=== PATIENT | female | born 1975 | race Caucasian/White ===

== ENCOUNTER 2016-09-13 17:36 | Emergency (ER) | payer MEDICAID ==
--- NOTE | 2016-09-13 19:08 | ER Document Report ---
ED Extremity Problem, Lower - General Mode of Arrival: Ambulatory Information source: Patient TRAVEL OUTSIDE OF THE [place] IN LAST 30 DAYS: No - HPI Patient complains to provider of: Pain Location: Foot Associated symptoms: Other - See above <KARISHMA COSTELLO - Last Filed: 09/13/16 19:23> <OMER VALDIVIA - Last Filed: 09/13/16 22:00> - General Chief Complaint: Foot Pain Stated Complaint: RIGHT FOOT PAIN Time Seen by Provider: 09/13/16 18:28 Notes: Patient is a 41 year old female who presents to the emergency department complaining of pain in her right foot. Patient reports that she dropped a vacuum on her foot and [place] and has pain with walking since. Patient reports that she has pain in the bottom of her foot with walking and swelling to the top of the foot that is tender. Patient reports that she has been wearing flip flops after the accident. (KARISHMA COSTELLO) - Related Data Allergies/Adverse Reactions: alprazolam [From Xanax] Adverse Reaction (Verified 09/13/16 18:12) Past Medical History - General Information source: Patient - Social History Smoking Status: Current Every Day Smoker Chew tobacco use (# tins/day): - 30 Frequency of alcohol use: None Drug Abuse: None Family History: Reviewed & Not Pertinent Past Surgical History: Reports: Hx Breast Surgery - Augmentation, Hx Orthopedic Surgery - ArmComment Only: Hx Abdominal Surgery - Colonectomy <KARISHMA COSTELLO - Last Filed: 09/13/16 19:23> Review of Systems - Review of Systems Constitutional: No symptoms reported EENT: No symptoms reported Cardiovascular: No symptoms reported Respiratory: No symptoms reported Gastrointestinal: No symptoms reported Genitourinary: No symptoms reported Female Genitourinary: No symptoms reported Musculoskeletal: See HPI, Other - foot pain and swelling Skin: No symptoms reported Hematologic/Lymphatic: No symptoms reported Neurological/Psychological: No symptoms reported -: Yes All other systems reviewed and negative <KARISHMA COSTELLO - Last Filed: 09/13/16 19:23> Physical Exam - Vital signs Interpretation: Normal - General General appearance: Appears well, Alert - HEENT Head: Normocephalic, Atraumatic - Respiratory Respiratory status: No respiratory distress - Extremities General upper extremity: Normal inspection Foot: Tender - Tenderness to palpation over right lateral top of foot. No: Ecchymosis - Neurological Neuro grossly intact: Yes Cognition: Normal Orientation: AAOx4 [place] Coma Scale Eye Opening: Spontaneous [place] Coma Scale Verbal: Oriented [place] Coma Scale Motor: Obeys Commands [place] Coma Scale Total: 15 Speech: Normal - Psychological Associated symptoms: Normal affect, Normal mood - Skin Skin Temperature: Warm Skin Moisture: Dry Skin Color: Normal <KARISHMA COSTELLO - Last Filed: 09/13/16 19:23> Course <KARISHMA COSTELLO - Last Filed: 09/13/16 19:23> - Diagnostic Test Radiology reviewed: Image reviewed, Reports reviewed <OMER VALDIVIA - Last Filed: 09/13/16 22:00> - Re-evaluation Re-evalutation: 09/13/16 With contusion to foot. No evidence for fracture on x-ray. Patient can take Tylenol or ibuprofen as needed at home and is to wear supportive footwear. No other injuries. Stable for discharge. Neurovascularly intact with bounding pulse. Return if any worsening or concerning symptoms. Understands and agrees with plan. (OMER VALDIVIA) - Vital Signs Vital signs: Temp Pulse Resp BP Pulse Ox 98.1 F 69 19 101/67 97 09/13/16 19:56 09/13/16 19:56 09/13/16 19:56 09/13/16 19:56 09/13/16 19:56 Discharge <KARISHMA COSTELLO - Last Filed: 09/13/16 19:23> <OMER VALDIVIA - Last Filed: 09/13/16 22:00> - Discharge Clinical Impression: Foot contusion Qualifiers: Encounter type: initial encounter Laterality: right Qualified Code(s): S90.31XA - Contusion of right foot, initial encounter Condition: Stable Disposition: HOME, SELF-CARE Instructions: Contusion ([facility]) Additional Instructions: Please make sure you are wearing protective, supportive footwear. Take Tylenol or Ibuprofen as needed for pain Scribe Attestation: 09/13/16 22:00 I personally performed the services described in the documentation, reviewed and edited the documentation which was dictated to the scribe in my presence, and it accurately records my words and actions. (OMER VALDIVIA) Scribe Documentation - Scribe Written by Nadege:: nadege Mcmahon, 09/13/16, 193 acting as scribe for :: Martin <KARISHMA COSTELLO - Last Filed: 09/13/16 19:23>
[2016-09-13 20:04] VITALS: BP 101/67
== END 2016-09-13 19:56 | disposition home or self-care (01) ==
LOC: ER 17:36
DX: S90.31XA Contusion of right foot, initial encounter (principal); M79.671 Pain in right foot; F17.200 Nicotine dependence, unspecified, uncomplicated; X58.XXXA Exposure to other specified factors, initial encounter
CPT/HCPCS: 99283

== ENCOUNTER 2017-07-01 05:25 | Emergency (ER) | payer MEDICAID ==
[2017-07-01 07:21] LABS: APPEARANCE,URINE CLEAR; BILIRUBIN,URINE NEGATIVE (NEGATIVE); COLOR,URINE YELLOW; GLUCOSE, URINE NEGATIVE (NEGATIVE); KETONES,URINE TRACE mg/dL (NEGATIVE); LEUKOCYTE ESTERASE,URINE NEGATIVE (NEGATIVE); NITRITE,URINE NEGATIVE (NEGATIVE); PROTEIN,URINE NEGATIVE (NEGATIVE); URINE SPECIFIC GRAVITY 1.011; UROBILINOGEN,URINE NEGATIVE mg/dL (<2.0)
[2017-07-01 07:34] LABS: ANION GAP 9 (5-19); BLOOD UREA NITROGEN 25 mg/dL (7-20); CALCIUM 9.6 mg/dL (8.4-10.2); CARBON DIOXIDE 26 mmol/L (22-30); CHLORIDE 103 mmol/L (98-107); GLUCOSE 90 mg/dL (75-110); POTASSIUM 4.7 mmol/L (3.6-5.0); SODIUM 137.7 mmol/L (137-145)
[2017-07-01 07:51] LABS: FREE T4 (FREE THYROXINE) 1.09 ng/dL (0.78-2.19)
[2017-07-01 08:05] LABS: THYROID STIMULATING HORMONE 1.81 uIU/mL (0.47-4.68)
--- NOTE | 2017-07-01 09:28 | ER Document Report ---
ED General - General Chief Complaint: Anxiety Stated Complaint: ANXIETY Time Seen by Provider: 07/01/17 06:30 TRAVEL OUTSIDE OF THE [place] IN LAST 30 DAYS: No - HPI Patient complains to provider of: Anxiety Notes: Patient coming in for evaluation of anxiety. Patient states she has a history of anorexia and used to weigh approximately 58 pounds currently thinks she is gaining too much weight and started a new diet consisting of small meals along with drinking 64 ounces of water. Patient is concerned as that she thinks that her electrolytes are now out of balance. Patient states because of these thoughts she is having acute anxiety attacks. Otherwise patient denies fever chills nausea vomiting diarrhea. - Related Data Allergies/Adverse Reactions: alprazolam [From Xanax] Adverse Reaction (Verified 09/13/16 18:12) Past Medical History - Social History Smoking Status: Current Every Day Smoker Frequency of alcohol use: None Drug Abuse: None Family History: Reviewed & Not Pertinent Patient has suicidal ideation: No Patient has homicidal ideation: No Renal/ Medical History: Denies: Hx Peritoneal Dialysis Past Surgical History: Reports: Hx Breast Surgery - Augmentation, Hx Orthopedic Surgery - ArmComment Only: Hx Abdominal Surgery - Colonectomy Review of Systems - Review of Systems Constitutional: Other - Anxiety EENT: No symptoms reported Cardiovascular: No symptoms reported Respiratory: No symptoms reported Gastrointestinal: No symptoms reported Genitourinary: No symptoms reported Female Genitourinary: No symptoms reported Musculoskeletal: No symptoms reported Skin: No symptoms reported Hematologic/Lymphatic: No symptoms reported Neurological/Psychological: No symptoms reported Physical Exam - Vital signs Vitals: Temp Pulse Resp BP Pulse Ox 98.4 F 90 17 117/67 95 07/01/17 05:31 07/01/17 05:31 07/01/17 05:31 07/01/17 05:31 07/01/17 05:31 Interpretation: Normal - General General appearance: Appears well, Alert - HEENT Head: Normocephalic, Atraumatic Eyes: Normal Pupils: PERRL - Respiratory Respiratory status: No respiratory distress Chest status: Nontender Breath sounds: Normal Chest palpation: Normal - Cardiovascular Rhythm: Regular Heart sounds: Normal auscultation Murmur: No - Abdominal Inspection: Normal Distension: No distension Bowel sounds: Normal Tenderness: Nontender Organomegaly: No organomegaly - Back Back: Normal, Nontender - Extremities General upper extremity: Normal inspection, Nontender, Normal color, Normal ROM , Normal temperature General lower extremity: Normal inspection, Nontender, Normal color, Normal ROM , Normal temperature, Normal weight bearing. No: Carmen's sign - Neurological Neuro grossly intact: Yes Cognition: Normal Orientation: AAOx4 [place] Coma Scale Eye Opening: Spontaneous [place] Coma Scale Verbal: Oriented [place] Coma Scale Motor: Obeys Commands [place] Coma Scale Total: 15 Speech: Normal Motor strength normal: LUE, RUE, LLE, RLE Sensory: Normal - Psychological Associated symptoms: Normal affect, Normal mood - Skin Skin Temperature: Warm Skin Moisture: Dry Skin Color: Normal Course - Re-evaluation Re-evalutation: 07/01/17 13:47 A BMP was performed and reassured patient that her electrolytes are within normal limits. Patient was greatly relieved with this information encouraged patient to continue with her weight training and to follow-up with her physician for further weight monitoring as he has history of anorexia. No signs of obvious distress patient was discharged home - Vital Signs Vital signs: Temp Pulse Resp BP Pulse Ox 98.0 F 81 18 105/66 97 07/01/17 09:37 07/01/17 09:37 07/01/17 09:37 07/01/17 09:37 07/01/17 09:37 - Laboratory Result Diagrams: 07/01/17 07:05 Laboratory results interpreted by me: 07/01/17 07/01/17 07:05 07:10 BUN 25 H Urine Ketones TRACE H Urine Ascorbic Acid 20 H Discharge - Discharge Clinical Impression: Anxiety, Normal physical exam Condition: Good Disposition: HOME, SELF-CARE Instructions: Anxiety ([facility]) Additional Instructions: Examination today is normal. Your laboratory examination is also normal. Please follow-up with your primary care physician in 1-2 weeks for further monitoring of your weight loss. Return to the ER for any concerning issues.
[2017-07-01 09:39] VITALS: BP 105/66
== END 2017-07-01 09:43 | disposition home or self-care (01) ==
LOC: ER 05:25
DX: F41.9 Anxiety disorder, unspecified (principal); F17.200 Nicotine dependence, unspecified, uncomplicated
CPT/HCPCS: 36415; 80048; 81001; 81025; 83735; 84439; 84443; 84702; 99283

== ENCOUNTER 2018-02-08 22:56 | Emergency (ER) | payer MEDICAID, OTHER ==
--- NOTE | 2018-02-09 00:43 | ER Document Report ---
ED ENT - General Chief Complaint: Ear Pain Stated Complaint: EAR ACHE/ANXIETY Time Seen by Provider: 02/09/18 00:43 Mode of Arrival: Ambulatory Information source: Patient Notes: Patient complained of left ear ache which started 24 hours ago. TRAVEL OUTSIDE OF THE [place] IN LAST 30 DAYS: No - HPI Patient complains to provider of: Ear problem Onset: Yesterday Onset/Duration: Sudden Severity: Mild Pain Level: 1 Location of pain: Ears - Left ear Associated symptoms: None Similar symptoms previously: No Recently seen / treated by doctor: No - Related Data Allergies/Adverse Reactions: alprazolam [From Xanax] Adverse Reaction (Verified 09/13/16 18:12) Past Medical History - Social History Smoking Status: Current Every Day Smoker Chew tobacco use (# tins/day): No Frequency of alcohol use: None Drug Abuse: None Family History: Reviewed & Not Pertinent Patient has suicidal ideation: No Patient has homicidal ideation: No Renal/ Medical History: Denies: Hx Peritoneal Dialysis Past Surgical History: Reports: Hx Breast Surgery - Augmentation, Hx Orthopedic Surgery - ArmComment Only: Hx Abdominal Surgery - Colonectomy Review of Systems - Review of Systems Constitutional: No symptoms reported EENT: Eye pain Cardiovascular: No symptoms reported Respiratory: No symptoms reported Gastrointestinal: No symptoms reported Genitourinary: No symptoms reported Female Genitourinary: No symptoms reported Musculoskeletal: No symptoms reported Skin: No symptoms reported Hematologic/Lymphatic: No symptoms reported Neurological/Psychological: No symptoms reported Physical Exam - Vital signs Vitals: Temp Pulse Resp BP Pulse Ox 97.9 F 79 18 98/62 L 92 02/09/18 01:47 02/09/18 01:47 02/09/18 01:47 02/09/18 01:47 02/09/18 01:47 Interpretation: Normal - General General appearance: Appears well, Alert - HEENT Head: Normocephalic, Atraumatic Eyes: Normal Pupils: PERRL External canal: Erythema Tympanic membrane: Perforation - Left ear drum Pharynx: Normal Neck: Normal - Respiratory Respiratory status: No respiratory distress Chest status: Nontender Breath sounds: Normal Chest palpation: Normal - Cardiovascular Rhythm: Regular Heart sounds: Normal auscultation Murmur: No - Abdominal Inspection: Normal Distension: No distension Bowel sounds: Normal Tenderness: Nontender Organomegaly: No organomegaly - Back Back: Normal, Nontender - Extremities General upper extremity: Normal inspection, Nontender, Normal color, Normal ROM , Normal temperature General lower extremity: Normal inspection, Nontender, Normal color, Normal ROM , Normal temperature, Normal weight bearing. No: Carmen's sign - Neurological Neuro grossly intact: Yes Cognition: Normal Orientation: AAOx4 [place] Coma Scale Eye Opening: Spontaneous [place] Coma Scale Verbal: Oriented [place] Coma Scale Motor: Obeys Commands [place] Coma Scale Total: 15 Speech: Normal Motor strength normal: LUE, RUE, LLE, RLE Sensory: Normal - Psychological Associated symptoms: Normal affect, Normal mood - Skin Skin Temperature: Warm Skin Moisture: Dry Skin Color: Normal Course - Vital Signs Vital signs: Temp Pulse Resp BP Pulse Ox 97.9 F 79 18 98/62 L 92 02/09/18 01:47 02/09/18 01:47 02/09/18 01:47 02/09/18 01:47 02/09/18 01:47 - Transfer of Care Notes: 02/09/18 01:25 Left Otitis media. Discharge - Discharge Clinical Impression: Otitis media Qualifiers: Otitis media type: unspecified Laterality: left Qualified Code(s): H66.92 - Otitis media, unspecified, left ear Condition: Stable Disposition: HOME, SELF-CARE Instructions: Otitis Media ([facility]) Additional Instructions: Please follow-up with your primary doctor or Dr Judd tomorrow morning. Return to the emergency room if her condition worsens. Prescriptions: Amox Tr/Potassium Clavulanate [Augmentin 875-125 Tablet] 1 tab PO BID 10 Days # 20 tablet Ibuprofen 400 mg PO TID PRN #20 tablet PRN Reason: Pain Scale Of 3 Referrals: BLAYNE BRENNAN,FRANCIA Kimbrough MD [NO LOCAL MD] - Follow up as needed
[2018-02-09 01:48] VITALS: BP 98/62
== END 2018-02-09 01:48 | disposition home or self-care (01) ==
LOC: ER 22:56
DX: H66.92 Otitis media, unspecified, left ear (principal); H72.92 Unspecified perforation of tympanic membrane, left ear; F17.200 Nicotine dependence, unspecified, uncomplicated
CPT/HCPCS: 99282

== ENCOUNTER → 2018-07-07 | Outpatient (CLI) | payer MEDICAID ==
--- NOTE | 2018-07-07 14:15 | WOMENS IMAGING REPORT ---
EXAM DESCRIPTION: BILAT DIAGNOSTIC MAMMO W/CAD; U/S BREAST UNILAT LIMITED COMPLETED DATE/TIME: 07/07/2018 10:41 am; 07/07/2018 12:35 pm REASON FOR STUDY: N64.4 MASTODYNIA; LEFT BREAST PAIN; RT BREAST PAIN N64.4 MASTODYNIA COMPARISON: None. TECHNIQUE: Standard craniocaudal and mediolateral oblique views of each breast recorded using digita l acquisition. Additional "push-back" craniocaudal and mediolateral oblique images acquired. Additional true lateral views of both breasts acquired. LIMITATIONS: None. FINDINGS: IMPLANTS: Bilateral subpectoral implants. RIGHT BREAST MASSES: No suspicious masses. CALCIFICATIONS: No new or suspicious calcifications. ARCHITECTURAL DISTORTION: None. DEVELOPING DENSITY: None. ASYMMETRY: None noted. OTHER: No other significant findings. LEFT BREAST MASSES: No suspicious masses. CALCIFICATIONS: No new or suspicious calcifications. ARCHITECTURAL DISTORTION: None. DEVELOPING DENSITY: None. ASYMMETRY: None noted. OTHER: No other significant finding. Read with the assistance of CAD: .[facility] - R2 Cenova Version 1.3 .[facility] - R2 Cenova Version 2.1 .[facility] - R2 Cenova Version 2.4 .[facility] [place] - R2 Cenova Version 2.4 .[facility] - R2 Analytical Strategist Version 9.2 BREAST ULTRASOUND: TECHNIQUE: Static and dynamic grayscale images acquired of the right and left breast in the specific areas of clinical/mammographic concern. Selected color Doppler images recorded. ELASTOGRAPHY PERFORMED: No. LIMITATIONS: None. FINDINGS: MASS: No mass identified. Normal glandular tissue. ELASTOGRAPHY CHARACTERISTICS: Not applicable. OTHER: No other significant finding. IMPRESSION: Unremarkable bilateral mammogram and bilateral breast ultrasound. No worrisome findings . BREAST DENSITY: c. The breasts are heterogeneously dense, which may obscure small masses. BIRAD: 2 Benign findings. RECOMMENDATION: RECOMMENDED FOLLOW UP: Birads 1 or 2: No breast imaging finding to explain the patie nt's presenting complaint. Further intervention should be based on the degree of clinical suspicion. SPECIFIC INTERVENTION/IMAGING/CONSULTATION RECOMMENDED:No additional intervention/ imaging/consultati on needed at this time. COMMUNICATION:The imaging findings were not discussed with the patient. Her referring provider has be en notified of the findings. COMMENT: The patient has been notified of the results by letter per MQSA requirements. Additional no tification policies are in place for contacting patient with suspicious or incomplete findings. Quality ID #[id number]: The [employer] recommends an annual screening mammogram for women aged 40 years or over. This facility utilizes a reminder system to ensure that all patients receive reminder letters, and/or direct phone calls for appointments. This includes reminders for routine scr eening mammograms, diagnostic mammograms, or other Breast Imaging Interventions when appropriate. Th is patient will be placed in the appropriate reminder system. The [employer] (ACR) has developed recommendations for screening MRI of the breast s in certain patient populations, to be used in conjunction with mammography. Breast MRI surveillanc e may be appropriate for women with more than 20% lifetime risk of developing breast cancer as deter mined by genetic testing, significant family history of the disease, or history of mantle radiation f or Hodgkins Disease. ACR Practice Guidelines 2008. TECHNICAL DOCUMENTATION: FINDING NUMBER: (1) ASSESSMENT: (1) JOB ID: [id number] [employer]- All Rights Reserved Reading location - IP/workstation name: [email or web address]
--- NOTE | 2018-07-07 14:15 | WOMENS IMAGING REPORT ---
EXAM DESCRIPTION: BILAT DIAGNOSTIC MAMMO W/CAD; U/S BREAST UNILAT LIMITED COMPLETED DATE/TIME: 07/07/2018 10:41 am; 07/07/2018 12:35 pm REASON FOR STUDY: N64.4 MASTODYNIA; LEFT BREAST PAIN; RT BREAST PAIN N64.4 MASTODYNIA COMPARISON: None. TECHNIQUE: Standard craniocaudal and mediolateral oblique views of each breast recorded using digita l acquisition. Additional "push-back" craniocaudal and mediolateral oblique images acquired. Additional true lateral views of both breasts acquired. LIMITATIONS: None. FINDINGS: IMPLANTS: Bilateral subpectoral implants. RIGHT BREAST MASSES: No suspicious masses. CALCIFICATIONS: No new or suspicious calcifications. ARCHITECTURAL DISTORTION: None. DEVELOPING DENSITY: None. ASYMMETRY: None noted. OTHER: No other significant findings. LEFT BREAST MASSES: No suspicious masses. CALCIFICATIONS: No new or suspicious calcifications. ARCHITECTURAL DISTORTION: None. DEVELOPING DENSITY: None. ASYMMETRY: None noted. OTHER: No other significant finding. Read with the assistance of CAD: .[facility] - R2 Cenova Version 1.3 .[facility] Imaging - R2 Cenova Version 2.1 .[facility] - R2 Cenova Version 2.4 .[facility] [place] [facility] - R2 Cenova Version 2.4 .[facility] - R2 Waiter/Waitress Cafeteria Version 9.2 BREAST ULTRASOUND: TECHNIQUE: Static and dynamic grayscale images acquired of the right and left breast in the specific areas of clinical/mammographic concern. Selected color Doppler images recorded. ELASTOGRAPHY PERFORMED: No. LIMITATIONS: None. FINDINGS: MASS: No mass identified. Normal glandular tissue. ELASTOGRAPHY CHARACTERISTICS: Not applicable. OTHER: No other significant finding. IMPRESSION: Unremarkable bilateral mammogram and bilateral breast ultrasound. No worrisome findings . BREAST DENSITY: c. The breasts are heterogeneously dense, which may obscure small masses. BIRAD: 2 Benign findings. RECOMMENDATION: RECOMMENDED FOLLOW UP: Birads 1 or 2: No breast imaging finding to explain the patie nt's presenting complaint. Further intervention should be based on the degree of clinical suspicion. SPECIFIC INTERVENTION/IMAGING/CONSULTATION RECOMMENDED:No additional intervention/ imaging/consultati on needed at this time. COMMUNICATION:The imaging findings were not discussed with the patient. Her referring provider has be en notified of the findings. COMMENT: The patient has been notified of the results by letter per MQSA requirements. Additional no tification policies are in place for contacting patient with suspicious or incomplete findings. Quality ID #225: The [employer] recommends an annual screening mammogram for women aged 40 years or over. This facility utilizes a reminder system to ensure that all patients receive reminder letters, and/or direct phone calls for appointments. This includes reminders for routine scr eening mammograms, diagnostic mammograms, or other Breast Imaging Interventions when appropriate. Th is patient will be placed in the appropriate reminder system. The [employer] (ACR) has developed recommendations for screening MRI of the breast s in certain patient populations, to be used in conjunction with mammography. Breast MRI surveillanc e may be appropriate for women with more than 20% lifetime risk of developing breast cancer as deter mined by genetic testing, significant family history of the disease, or history of mantle radiation f or Hodgkins Disease. ACR Practice Guidelines 2008. TECHNICAL DOCUMENTATION: FINDING NUMBER: (1) ASSESSMENT: (1) JOB ID: [id number] [employer]- All Rights Reserved Reading location - IP/workstation name: [email or web address]
--- NOTE | 2018-07-07 14:15 | WOMENS IMAGING REPORT ---
EXAM DESCRIPTION: BILAT DIAGNOSTIC MAMMO W/CAD; U/S BREAST UNILAT LIMITED COMPLETED DATE/TIME: 07/07/2018 10:41 am; 07/07/2018 12:35 pm REASON FOR STUDY: N64.4 MASTODYNIA; LEFT BREAST PAIN; RT BREAST PAIN N64.4 MASTODYNIA COMPARISON: None. TECHNIQUE: Standard craniocaudal and mediolateral oblique views of each breast recorded using digita l acquisition. Additional "push-back" craniocaudal and mediolateral oblique images acquired. Additional true lateral views of both breasts acquired. LIMITATIONS: None. FINDINGS: IMPLANTS: Bilateral subpectoral implants. RIGHT BREAST MASSES: No suspicious masses. CALCIFICATIONS: No new or suspicious calcifications. ARCHITECTURAL DISTORTION: None. DEVELOPING DENSITY: None. ASYMMETRY: None noted. OTHER: No other significant findings. LEFT BREAST MASSES: No suspicious masses. CALCIFICATIONS: No new or suspicious calcifications. ARCHITECTURAL DISTORTION: None. DEVELOPING DENSITY: None. ASYMMETRY: None noted. OTHER: No other significant finding. Read with the assistance of CAD: .[facility] - R2 Cenova Version 1.3 .[facility] Imaging - R2 Cenova Version 2.1 .[facility] - R2 Cenova Version 2.4 .[facility] [place] R2 Cenova Version 2.4 .[facility] - R2 Ream Cutter Version 9.2 BREAST ULTRASOUND: TECHNIQUE: Static and dynamic grayscale images acquired of the right and left breast in the specific areas of clinical/mammographic concern. Selected color Doppler images recorded. ELASTOGRAPHY PERFORMED: No. LIMITATIONS: None. FINDINGS: MASS: No mass identified. Normal glandular tissue. ELASTOGRAPHY CHARACTERISTICS: Not applicable. OTHER: No other significant finding. IMPRESSION: Unremarkable bilateral mammogram and bilateral breast ultrasound. No worrisome findings . BREAST DENSITY: c. The breasts are heterogeneously dense, which may obscure small masses. BIRAD: 2 Benign findings. RECOMMENDATION: RECOMMENDED FOLLOW UP: Birads 1 or 2: No breast imaging finding to explain the patie nt's presenting complaint. Further intervention should be based on the degree of clinical suspicion. SPECIFIC INTERVENTION/IMAGING/CONSULTATION RECOMMENDED:No additional intervention/ imaging/consultati on needed at this time. COMMUNICATION:The imaging findings were not discussed with the patient. Her referring provider has be en notified of the findings. COMMENT: The patient has been notified of the results by letter per MQSA requirements. Additional no tification policies are in place for contacting patient with suspicious or incomplete findings. Quality ID #225: The [employer] recommends an annual screening mammogram for women aged 40 years or over. This facility utilizes a reminder system to ensure that all patients receive reminder letters, and/or direct phone calls for appointments. This includes reminders for routine scr eening mammograms, diagnostic mammograms, or other Breast Imaging Interventions when appropriate. Th is patient will be placed in the appropriate reminder system. The [employer] (ACR) has developed recommendations for screening MRI of the breast s in certain patient populations, to be used in conjunction with mammography. Breast MRI surveillanc e may be appropriate for women with more than 20% lifetime risk of developing breast cancer as deter mined by genetic testing, significant family history of the disease, or history of mantle radiation f or Hodgkins Disease. ACR Practice Guidelines 2008. TECHNICAL DOCUMENTATION: FINDING NUMBER: (1) ASSESSMENT: (1) JOB ID: [id number] [employer]- All Rights Reserved Reading location - IP/workstation name: [email or web address]
== END ==
LOC: WI 10:01
PROVIDERS: ATTEND Physician Assistant
DX: N64.4 Mastodynia (principal)
CPT/HCPCS: 76642; 77066

== ENCOUNTER 2019-02-07 19:05 | Emergency (ER) | payer MEDICAID ==
[2019-02-07 19:13] VITALS: BP 124/73
[2019-02-07] MEDS ORDERED: ACETAMINOPHEN 325 MG TABLET PO ONE (19:24)
--- NOTE | 2019-02-07 19:24 | ER Document Report ---
HPI - HPI Time Seen by Provider: 02/07/19 19:15 Context: Patient is a 44-year-old female who presents emergency department with a chief complaint of a fever. She had her tooth #2 extracted yesterday. Patient is currently on antibiotics, but has forgotten to take her her dose yesterday. Patient's temperature was 100.3 and she states that she felt flushed. Patient took ibuprofen at 1445. She only took 400 mg. Denies any shortness of breath, difficulty breathing, or any other symptoms. - CONSTITUTIONAL Constitutional: DENIES: Fever, Chills - REPRODUCTIVE Reproductive: DENIES: : Past Medical History - Social History Smoking Status: Current Every Day Smoker Chew tobacco use (# tins/day): No Frequency of alcohol use: None Drug Abuse: None Family History: Reviewed & Not Pertinent Patient has suicidal ideation: No Patient has homicidal ideation: No Renal/ Medical History: Denies: Hx Peritoneal Dialysis Past Surgical History: Reports: Hx Breast Surgery - Augmentation, Hx Orthopedic Surgery - ArmComment Only: Hx Abdominal Surgery - Colonectomy Vertical Provider Document - CONSTITUTIONAL Agree With Documented VS: Yes Exam Limitations: No Limitations General Appearance: No Apparent Distress - INFECTION CONTROL TRAVEL OUTSIDE OF THE [place] IN LAST 30 DAYS: No - HEENT HEENT: Atraumatic, Normocephalic, PERRLA Mouth Diagram: 1 - Extracted tooth - NECK Neck: Normal Inspection - RESPIRATORY Respiratory: No Respiratory Distress - CARDIOVASCULAR Cardiovascular: Regular Rate Pulses: Normal: Radial - MUSCULOSKELETAL/EXTREMETIES Musculoskeletal/Extremeties: FROM - NEURO Level of Consciousness: Awake, Alert, Appropriate Motor/Sensory: No Motor Deficit - DERM Integumentary: Warm, Dry, No Rash Course - Re-evaluation Re-evalutation: 02/07/19 19:26 Patient's physical exam and history is most consistent with tooth socket pain. Patient is able to swallow, mild swelling noted due to surgery, airway is patent, vital signs are normal. I do not suspect Dc's angina, peritonsilar abscess, or airway obstruction. The patient will be started on oral antibiotics. I have given the patient education on their antibiotics. Patient was given instructions to follow-up with a dentist this week. Return precautions were given. Verbal discharge instructions were given. Patient verbalized understanding. Patient is stable for discharge. - Vital Signs Vital signs: Temp Pulse Resp BP Pulse Ox 98.2 F 72 18 124/73 98 02/07/19 19:08 02/07/19 19:08 02/07/19 19:08 02/07/19 19:08 02/07/19 19:08 Discharge - Discharge Clinical Impression: Pain of tooth socket Condition: Stable Disposition: HOME, SELF-CARE Instructions: Fever ([facility]) Additional Instructions: You are seen today in the emergency department for tooth socket pain. Please continue taking your antibiotics as prescribed and make sure you finish all of your antibiotics. Set an alarm for you to remember to take your medications. You can take Tylenol 1000 mg and ibuprofen 600 mg every 6 hours for your pain. Take these for the next few days while you recover from your tooth surgery.
== END 2019-02-07 19:29 | disposition home or self-care (01) ==
LOC: ER 19:05
DX: K08.89 Other specified disorders of teeth and supporting structures (principal); R50.9 Fever, unspecified; F17.200 Nicotine dependence, unspecified, uncomplicated

== ENCOUNTER 2019-04-21 07:58 | Emergency (ER) | payer MEDICAID ==
--- NOTE | 2019-04-21 13:05 | ER Document Report ---
ED General - General Chief Complaint: Anxiety Stated Complaint: ANXIOUS FEELING, DIZZY Time Seen by Provider: 04/21/19 12:02 Primary Care Provider: FRANCIA JEFFERSON MD [Primary Care Provider] - Follow up as needed Information source: Patient Notes: Patient complains of anxiety today. She has a remote history of anxiety. She also has a history of remote eating disorder. She denies any suicidal homicidal ideation. She is requesting blood test to make sure that her sodium and potassium are okay. She tells me she ate something salty last night. She denies any chest pain or shortness of breath. She is not sure if she is at this time. Her past surgical history breast augmentation approximately 19 years ago. No rashes. No recent trauma. No other complaints. She is a smoker. She no longer feels dizzy. Pt has been prescribed Zoloft in the past, but does not want to be on medication. She does not drink alcohol. TRAVEL OUTSIDE OF THE [place] IN LAST 30 DAYS: No - Related Data Allergies/Adverse Reactions: alprazolam [From Xanax] Adverse Reaction (Verified 04/21/19 11:46) clindamycin Adverse Reaction (Verified 04/21/19 11:46) shellfish derived Adverse Reaction (Verified 04/21/19 11:46) Past Medical History - Social History Smoking Status: Current Every Day Smoker Frequency of alcohol use: None Drug Abuse: None Family History: Reviewed & Not Pertinent Patient has suicidal ideation: No Patient has homicidal ideation: No Renal/ Medical History: Denies: Hx Peritoneal Dialysis Past Surgical History: Reports: Hx Abdominal Surgery - Colonectomy, Hx Breast Surgery - Augmentation, Hx Orthopedic Surgery - Arm Review of Systems - Review of Systems Constitutional: denies: Chills, Fever Cardiovascular: denies: Chest pain, Palpitations -: Yes All other systems reviewed and negative Physical Exam - Vital signs Vitals: Temp Pulse Resp BP Pulse Ox 98.2 F 76 14 101/63 100 04/21/19 08:15 04/21/19 08:15 04/21/19 08:15 04/21/19 08:15 04/21/19 08:15 Interpretation: Normal - General General appearance: Appears well, Alert - HEENT Head: Normocephalic, Atraumatic Eyes: Normal Pupils: PERRL - Respiratory Respiratory status: No respiratory distress Chest status: Nontender Breath sounds: Normal Chest palpation: Normal - Cardiovascular Rhythm: Regular Heart sounds: Normal auscultation Murmur: No - Abdominal Inspection: Normal Distension: No distension Bowel sounds: Normal Tenderness: Nontender Organomegaly: No organomegaly - Back Back: Normal, Nontender - Extremities General upper extremity: Normal inspection, Nontender, Normal color, Normal ROM, Normal temperature General lower extremity: Normal inspection, Nontender, Normal color, Normal ROM, Normal temperature, Normal weight bearing. No: Carmen's sign - Neurological Neuro grossly intact: Yes Cognition: Normal Orientation: AAOx4 [place] Coma Scale Eye Opening: Spontaneous [place] Coma Scale Verbal: Oriented [place] Coma Scale Motor: Obeys Commands [place] Coma Scale Total: 15 Speech: Normal Motor strength normal: LUE, RUE, LLE, RLE Sensory: Normal - Psychological Associated symptoms: Anxious - Skin Skin Temperature: Warm Skin Moisture: Dry Skin Color: Normal Course - Re-evaluation Re-evalutation: 04/21/19 13:10 EKG per me shows normal sinus rhythm at a rate of 67 with normal QRS duration and axis. Normal study. 04/21/19 14:35 Labs reviewed. Patient was reassured by normal labs. She will start exercising to improve her anxiety. She will return at once if worse or new symptoms. She will follow-up with her own physician in the next few days. - Vital Signs Vital signs: Temp Pulse Resp BP Pulse Ox 98.0 F 76 16 110/60 96 04/21/19 13:18 04/21/19 13:18 04/21/19 13:18 04/21/19 13:18 04/21/19 13:18 - Laboratory Result Diagrams: 04/21/19 13:16 04/21/19 13:16 Laboratory results interpreted by me: 04/21/19 04/21/19 13:16 13:16 Hgb 15.6 H MCH 33.7 H Magnesium 2.4 H Discharge - Discharge Clinical Impression: Anxiety Condition: Stable Disposition: HOME, SELF-CARE Instructions: Anxiety ([facility]) Additional Instructions: Return at once if worse or new symptoms. Follow-up with your physician in the next few days. Referrals: FRANCIA JEFFERSON MD [Primary Care Provider] - Follow up as needed
[2019-04-21 13:30] LABS: ABSOLUTE LYMPHOCYTES (AUTO) 0.8 10^3/uL (0.5-4.7); ABSOLUTE MONOCYTES (AUTO) 0.3 10^3/uL (0.1-1.4); ABSOLUTE NEUT (AUTO) 4.1 10^3/uL (1.7-8.2); BASOPHILS % (AUTO) 0.3 % (0-2); EOSINOPHILS % (AUTO) 0.2 % (0-6); HEMATOCRIT 45.1 % (36.0-47.0); HEMOGLOBIN 15.6 g/dL (12.0-15.5); MEAN CORPUSCULAR HEMOGLOBIN 33.7 pg (27.0-33.4); MEAN CORPUSCULAR HGB CONC 34.7 g/dL (32.0-36.0); MEAN CORPUSCULAR VOLUME 97 fl (80-97); MONOCYTES % (AUTO) 6.6 % (3-13); PLATELET COUNT 167 10^3/uL (150-450); RED BLOOD COUNT 4.64 10^6/uL (3.72-5.28); RED CELL DISTRIBUTION WIDTH 13.3 % (11.5-14.0); SEGMENTED NEUTROPHILS % (AUTO) 77.9 % (42-78); TOTAL CELLS COUNTED % (AUTO) 100 %; WHITE BLOOD COUNT 5.3 10^3/uL (4.0-10.5)
[2019-04-21 13:47] LABS: ALBUMIN 4.2 g/dL (3.5-5.0); ALKALINE PHOSPHATASE 85 U/L (38-126); ANION GAP 9 (5-19); ASPARTATE AMINO TRANSFERASE 20 U/L (14-36); BILIRUBIN,DIRECT 0.1 mg/dL (0.0-0.4); BILIRUBIN,TOTAL 0.4 mg/dL (0.2-1.3); BLOOD UREA NITROGEN 13 mg/dL (7-20); CARBON DIOXIDE 24 mmol/L (22-30); CHLORIDE 105 mmol/L (98-107); GLUCOSE 90 mg/dL (75-110); POTASSIUM 4.7 mmol/L (3.6-5.0)
[2019-04-21 14:05] LABS: FREE T3 2.99 pg/mL (2.77-5.27)
[2019-04-21 14:18] LABS: THYROID STIMULATING HORMONE 0.83 uIU/mL (0.47-4.68)
[2019-04-21 14:54] VITALS: BP 126/67
--- NOTE | 2019-04-21 19:27 | EKG REPORT ---
SEVERITY:- NORMAL ECG - SINUS RHYTHM : Confirmed by: Robina Jules MD 21-Apr-2019 19:26:29
== END 2019-04-21 14:57 | disposition home or self-care (01) ==
LOC: ER 07:58
DX: F41.9 Anxiety disorder, unspecified (principal); F17.200 Nicotine dependence, unspecified, uncomplicated
CPT/HCPCS: 36415; 80053; 83735; 84443; 84481; 84703; 85025; 93005; 93010; 99283

== ENCOUNTER 2019-09-16 18:52 | Emergency (ER) | payer MEDICAID, OTHER ==
[2019-09-16 19:27] VITALS: BP 107/53
[2019-09-16] MEDS ORDERED: AMOXICILLIN TR/POT CLAVULANATE 875-125 MG TAB PO ONE (19:37)
[2019-09-16] MEDS ORDERED: NAPROXEN 250 MG TABLET PO ONE (19:37)
--- NOTE | 2019-09-16 19:46 | ER Document Report ---
ED Oral Problem - General Chief Complaint: Jaw Pain Stated Complaint: JAW PAIN Time Seen by Provider: 09/16/19 19:13 Primary Care Provider: FRANCIA JEFFERSON MD [Primary Care Provider] - Follow up as needed Notes: CHIEF COMPLAINT: Dental pain HPI: 44-year-old female presenting with jaw and dental pain with chewing and eating over the last week. Patient states when she is biting down on something she will have a sharp discomfort in the right jaw. Denies neck pain. Denies chest pain or shortness of breath. Symptoms are specific to eating or chewing. Patient also with history of poor dentition and reports increasing pain with drainage from dental caries right upper jaw. No facial swelling or fever. Patient was able to go to the beach and stay out in the sun all day with no difficulties ROS: See HPI - all other systems were reviewed and are otherwise negative Constitutional: no fever Eyes: no drainage, no blurred vision ENT: no runny nose, no sore throat, positive dental pain Cardiovascular: no chest pain Resp: no SOB, no cough Integumentary: no rash Allergy: no hives MEDICATIONS: I agree with the patient medications as charted by the RN. ALLERGIES: I agree with the allergies as charted by the RN. PAST MEDICAL HISTORY/PAST SURGICAL HISTORY: Reviewed and agree as charted by RN. SOCIAL HISTORY: Reviewed and agree as charted by RN. FAMILY HISTORY: No significant familial comorbid conditions directly related to patient complaint EXAM: Reviewed vital signs as charted by RN. CONSTITUTIONAL: Alert and oriented and responds appropriately to questions. Well-appearing; well-nourished, no acute distress HEAD: Normocephalic; atraumatic EYES: PERRL; Conjunctivae clear, sclerae non-icteric ENT: normal nose; no rhinorrhea; moist mucous membranes; pharynx without lesions noted, no uvula edema or deviation, no tonsillar hypertrophy, phonation normal. No dental swelling or dental pain right lower molars. Patient with erosion of the right upper first molar to the gingiva with some gingival edema no facial swelling no trismus no sublingual swelling. Phonation is normal. NECK: Supple without meningismus; non-tender; no cervical lymphadenopathy, no masses CARD: Capillary refill less than 3 seconds; symmetric distal pulses RESP: Normal chest excursion without splinting or tachypnea ABD/GI: non-distended BACK: The back appears normal EXT: Normal ROM in all joints; no cyanosis, no effusions, no edema SKIN: Normal color for age and race; warm; dry; good turgor; no acute lesions noted NEURO: Moves all extremities equally; Motor and sensory function intact PSYCH: The patient's mood and manner are appropriate. Grooming and personal hygiene are appropriate. MDM: 44-year-old female with dental caries and dental pain. Low suspicion for ACS. Her symptoms are specific to chewing. Patient states amoxicillin does not work on her dental issues normally requires Augmentin does not require Diflucan. Patient is aware she will need to follow-up with a dentist for definitive ma nagement. TRAVEL OUTSIDE OF THE [place] IN LAST 30 DAYS: No - Related Data Allergies/Adverse Reactions: alprazolam [From Xanax] Adverse Reaction (Verified 09/16/19 19:27) clindamycin Adverse Reaction (Verified 09/16/19 19:27) shellfish derived Adverse Reaction (Verified 09/16/19 19:27) Home Medications: plexus-supplement Past Medical History - Social History Smoking Status: Unknown if Ever Smoked Family History: Reviewed & Not Pertinent Patient has homicidal ideation: No Renal/ Medical History: Denies: Hx Peritoneal Dialysis Psychiatric Medical History: Reports: Hx Depression - anxiety Past Surgical History: Reports: Hx Abdominal Surgery - Colonectomy, Hx Breast Surgery - Augmentation, Hx Orthopedic Surgery - Arm Physical Exam - Vital signs Vitals: Temp Pulse Resp BP Pulse Ox 98.1 F 83 14 107/53 L 100 09/16/19 19:15 09/16/19 19:15 09/16/19 19:15 09/16/19 19:15 09/16/19 19:15 Course - Vital Signs Vital signs: Temp Pulse Resp BP Pulse Ox 98.1 F 83 14 107/53 L 100 09/16/19 19:15 09/16/19 19:15 09/16/19 19:15 09/16/19 19:15 09/16/19 19:15 Discharge - Discharge Clinical Impression: Pain due to dental caries Condition: Stable Disposition: HOME, SELF-CARE Instructions: Dental Infection or Abscess ([facility]) Additional Instructions: Follow-up with a dentist for definitive management of your dental issues. Take the antibiotics as prescribed. Take Voltaren for pain and inflammation. Return for facial swelling or fever greater than 101 Prescriptions: Amoxicillin/Potassium Clav [Augmentin 500-125 Tablet] 1 each PO TID #21 tablet Diclofenac Sodium [Voltaren 50 Mg Tablet.] 50 mg PO BID #20 tablet. Referrals: FRANCIA JEFFERSON MD [Primary Care Provider] - Follow up as needed
== END 2019-09-16 20:30 | disposition home or self-care (01) ==
LOC: ER 18:52
DX: K02.9 Dental caries, unspecified (principal)
CPT/HCPCS: 99283; J3490